=== PATIENT | male | born 1985 | race African-American/Black ===

== ENCOUNTER 2018-07-18 19:17 | Emergency (ER) | payer BC ==
[~2018-07-18] VITALS: Ht 172.7 cm; Wt 75.0 kg
[2018-07-18 19:29] VITALS: BP 152/98
== END 2018-07-18 23:43 | disposition left against medical advice (07) ==
LOC: ER 19:17
DX: R56.9 Unspecified convulsions (principal); Z53.21 Procedure and treatment not carried out due to patient leaving prior to being seen by health care provider